=== PATIENT | female | born 1980 | race African-American/Black ===

== ENCOUNTER 2017-05-06 11:02 | Emergency (ER) | payer BC ==
[~2017-05-06] VITALS: Ht 152.4 cm; Wt 54.5 kg
[~2017-05-06 11:02] MED LIST: Motrin PO
[2017-05-06 11:57] LABS: SOURCE URINE
[2017-05-06] MEDS ORDERED: ISENTRESS400 MG PO (15:10)
[2017-05-06] MEDS ORDERED: TRUVADA1 TABLET PO (15:10)
[2017-05-06 15:17] VITALS: BP 116/93
[2017-05-08 13:40] LABS: CHLAMYDIA TRACHOMATIS NEGATIVE; NEISSERIA GONORRHOEAE NEGATIVE
== END 2017-05-06 15:17 | disposition home or self-care (01) ==
LOC: EME 11:02
DX: Z20.2 Contact with and (suspected) exposure to infections with a predominantly sexual mode of transmission (principal); F17.200 Nicotine dependence, unspecified, uncomplicated; J45.909 Unspecified asthma, uncomplicated
CPT/HCPCS: 80053; 81003; 84702; 84703; 85027; 86705; 86803; 87340; 87389; 87491; 87591; 99281; 99283